=== PATIENT | female | born 1960 | race Caucasian/White ===

== ENCOUNTER → 2018-05-11 | Outpatient (CLI) | payer OTHER ==
[~2018-05-11] MED LIST: ANTIVERT25 MG PO; ATORVASTATIN CA40 MG PO; HYDROCHLOROTH12.5 M1 PO; HYDROCHLOROTHIA25 M2 PO; HYDROCODON-ACE1 EAC7 PO; IBUPROFEN200 M1 PO; TRAMADOL 50 MG50 MG PO
--- NOTE | ~2018-05-11 | PAINCON ---
[address] [address] PAIN MANAGEMENT CONSULTATION Name: HOWIE DIOP Room: [facility] IESHA Rust#: [id number] Admission: 05/11/18 Attend Phys: Brit Kidd MD Discharge: Date of : 56 Report #: [id number] THIS REPORT FOR: //name// CC: Leonarda Kidd DATE OF SERVICE: 05/11/2018 CHIEF COMPLAINT: Low back pain. HISTORY OF PRESENT ILLNESS: The patient is a 57-year-old female who has been referred to the Pain Clinic for evaluation. The patient states that she has pain, which is quite problematic in the lower portion of her back. She notes that the pain is radiating down into her right hip and involving the leg. Pain is worse when she is standing or walking. Support makes it better. Pain improves somewhat when she is sitting or leaning on an object. She described it as burning, aching, stabbing, and rates it as a 7/10 at this point. She has had some pain in the back for a number of years. It has been getting worse over the last couple of months. She has tried ibuprofen and has found hydrocodone somewhat beneficial. She has tried Depo-Medrol intramuscular injection. She has tried meloxicam. She has also been provided Flexeril. ALLERGIES: No known drug allergies. MEDICATIONS: Mobic 7.5 mg b.i.d., tramadol 50 mg one to two q. six hours p.r.n., Paxil 20 mg, ProAir 2 puffs q.i.d. shortness of breath, hydrochlorothiazide, simvastatin 40 mg, hydrocodone 5/325s one to two tablets p.r.n. q. six hours, Flexeril 10 mg t.i.d. PAST MEDICAL HISTORY: Back pain, anxiety, prediabetes, chondrocalcinosis, knee pain, hypertension, hyperlipidemia, and cervical radiculopathy, left. PAST SURGICAL HISTORY: Broken leg in 1968 - pin placed, cervical fusion three levels in 2008. SOCIAL HISTORY: The patient works in a grocery store. She is working at this juncture. REVIEW OF SYSTEMS: Generally good health. Fatigue, weakness. Wears glasses. Joint pain, joint stiffness. Muscle pain and cramps. Back pain, difficulty walking, depression. RADIOLOGY: Plain film dated 02/23/2017, three views were obtained of the lumbar spine. The vertebral body heights were maintained and there were no compression fractures or deformities or misalignments. The disc interspaces were maintained. There was sclerosis and hypertrophy of [place] [address] PAIN MANAGEMENT CONSULTATION Name: HOWIE DIOP Room: [facility] IESHA Rust#: [id number] Admission: 05/11/18 Attend Phys: Brit Kidd MD Discharge: Date of : 56 Report #: [id number] the lower lumbar spine. The pedicles were intact. The soft tissues were unremarkable. Impression: There are moderate articular changes, mainly involving the articulating facets in the lower lumbar spine. There is no radiographic evidence of acute bony pathology involved in the lumbar spine. PAIN CLINIC ASSESSMENT/PQRS: 1. The patient is not being treated for rheumatoid arthritis. 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 2. Height 5 feet 6 inches, weight 253 pounds, BMI is 40. 3. Vital signs: Blood pressure 151/78, heart rate 78, respiratory rate 16, room air saturation 94%, temperature 98.2. 4. Pain intensity: 7/10. 5. Fall history: The patient has not fallen in the last 3 months. 6. Blood thinner: The patient is not on a blood thinning medication. 7. Hypertension: The patient is not being treated for hypertension. 8. Opioids greater than 6 weeks: The patient receives medication from her primary physician. 9. Risk assessment tool: Low for opioid use. 10. Functional assessment tool. 11. Recreational drug use: The patient denies use of recreational drugs. 12. Tobacco: The patient denies use of tobacco. 13. Alcohol: The patient denies use of alcoholic beverages. PHYSICAL EXAMINATION: GENERAL: The patient is a well-developed, well-nourished white female. She appears her stated age. She is alert and oriented x 3. Her affect is appropriate. Speech is fluent. HEENT: Normocephalic, atraumatic. Extraocular eye muscles are intact. Sclerae are nonicteric. Mucous membranes are moist. NECK: The patient has discomfort in the right lateral portion of her neck. She has some numbness and tingling down into the right hand, into the fingers. She has some pain and discomfort in the upper right shoulder with some pain and discomfort, which she describes as a 4/5 for muscle strength on the right side. HEART: Regular rate, S1 and S2. LUNGS: Clear to auscultation. ABDOMEN: Nontender, protuberant. MUSCULOSKELETAL/NEUROLOGIC: The patient without significant scoliosis, kyphosis, or lordosis. She has some pain in the right hip area. She has pain that is radiating down into the L4-L5 dermatomal distribution on the right. Forward bending to about 45 degrees causes some increased pain and discomfort in low back area. The patient has some perception of dizziness with lumbar extension of her neck. She has some pain that is radiating in the right flank down into the right buttocks. Able to walk on heels and toes. Deep tendon reflexes trace at the knees. We did not hit the right knee secondary to the patient having soreness in this area. She has had cortisone injections [place] [address] PAIN MANAGEMENT CONSULTATION Name: HOWIE DIOP Room: [facility]#: [id number] Admission: 05/11/18 Attend Phys: Brit Kidd MD Discharge: Date of : 56 Report #: [id number] IMPRESSION: 1. Lumbar radiculopathy L4-L5 distribution on the right. 2. Back pain. 3. Anxiety. 4. Prediabetes. 5. Chondrocalcinosis, knee pain. 6. Hypertension. 7. Hyperlipidemia. 8. Cervical radiculopathy, left. RECOMMENDATIONS: We discussed treatment options with the patient. Risks and benefits of an epidural steroid injection were discussed. A model was used to indicate the area of probable pathology. Literature and a model was used to outline the cause and probable reason for her pain and discomfort. The patient states that she understands. She will return to the Pain Clinic at which time she will then undergo an epidural steroid injection to help decrease the pain and discomfort which she has been experiencing. She will continue with her current medications. We would like to thank you for letting us participate in her care. We hope she continues to improve. By: [id number]. Thee Kidd MD /nt
== END ==
LOC: M.PC 12:50
DX: M54.12 Radiculopathy, cervical region (principal); M54.16 Radiculopathy, lumbar region; M11.261 Other chondrocalcinosis, right knee; F41.9 Anxiety disorder, unspecified; I10 Essential (primary) hypertension; E78.5 Hyperlipidemia, unspecified; R73.03 Prediabetes

== ENCOUNTER → 2018-05-18 | Outpatient (CLI) | payer OTHER ==
--- NOTE | ~2018-05-18 | PAINCON ---
[address] [address] PAIN MANAGEMENT CONSULTATION Name: CHIKISHOWIELAOVNNE FORD Room: [facility] IESHA Rust#: [id number] Admission: 05/18/18 Attend Phys: Brit Kidd MD Discharge: Date of : 56 Report #: [id number] THIS REPORT FOR: //name// CC: Leonarda Kidd DATE OF SERVICE: 05/18/2018 CHIEF COMPLAINT: Returning for an epidural steroid injection. HISTORY: The patient is a 57-year-old female who has been seen in the Pain Clinic. She suffers from lumbar radiculopathy. She has been experiencing pain that has been radiating down the back pouch portion of her leg along the L5, L4 distribution. She has had sciatic pain in the past. Feels that this pain is a little bit different. She has returned today for injection. She got off at 3 o'clock. She went to work at 3 o'clock this morning in order to make it to this injection. Rates her pain as an 8/10. Feels that the hydrocodone 5/325 has been helpful. Also takes ibuprofen p.r.n. Describes as a burning, crushing and aching pain. Pain is worse with activity, walking, standing, climbing stairs, sitting, bending and lifting. Feels that use of medication and rest are helpful. ALLERGIES: No known drug allergies. CURRENT MEDICATIONS: Hydrocodone 5/325 one p.o. 3-4 times daily, ibuprofen 2-3 tablets daily, hydrochlorothiazide 25 mg daily. PAIN CLINIC ASSESSMENT/PQRS: 1. The patient has not fallen. The patient is not being treated for osteoarthritis or rheumatoid arthritis. 2. Height 5 feet 6 inches, weight 256 pounds, BMI 41.4. 3. Vital signs: Blood pressure 150/89, heart rate 84, respiratory rate 16, room air saturation 95%, temperature 98.4. 4. Pain intensity, 8/10. 5. Fall history: The patient has not fallen in the last 3 months. 6. Blood thinner. The patient is not on a blood thinning medication. 7. Hypertension. The patient is not being treated for hypertension. 8. Opioid greater than 6 weeks. The patient is receiving medications from the Pain Clinic. 9. Risk assessment tool, low for opioid use. 10. Functional assessment tool. 11. Recreational drug use. The patient denies use of recreational drugs. 12. Tobacco: The patient denies use of a pack of tobacco. 13. Alcohol: The patient denies use of alcoholic beverage. 14. Recreational drug use. The patient denies [place] [address] PAIN MANAGEMENT CONSULTATION Name: HOWIE DIOP [id number] Admission: 05/18/18 Attend Phys: Brit Kidd MD Discharge: Date of : 56 Report #: [id number] PHYSICAL EXAMINATION: GENERAL: The patient is a well-developed, well-nourished, somewhat obese white female, appears her stated age. She is alert and oriented x 3. Affect is appropriate. Speech is fluent. HEENT: Normocephalic, atraumatic. Extraocular eye muscles intact. Sclerae nonicteric. Mucous membranes are moist. NECK: Without adenopathy or JVD. Upper extremity muscle strength is judged to be 5/5 for the major muscle groups in the upper extremity. HEART: Regular rate. S1, S2. LUNGS: Clear to auscultation. ABDOMEN: Protuberant. Lower extremity muscle strength is judged to be 5/5 for the major muscle groups in the lower extremity. The patient has pain and discomfort, which is radiating down the right lateral thigh in the L4-L5 dermatomal distribution. The patient has some pain in the area of the left and right paraspinous area as well. IMPRESSION: Lumbar radiculopathy, L4-L5 distribution. RECOMMENDATIONS: We discussed treatment options with the patient. Risks and benefits of an epidural steroid injection were again discussed. Possible complications of the procedure, which could include but are not limited to infection, worsening pain, no improvement in pain, bleeding, nerve damage were discussed. The patient elects to proceed. PROCEDURE NOTE: The patient was assisted in getting on the examination table. Her back was sterilely prepped with a Betadine solution. A 0.25% bupivacaine was infiltrated into the area after the L4-L5 interspace had been cleaned. A 17-gauge Tuohy at the L4-L5 interspace was placed using a left paramedian approach. A total of 80 mg Depo-Medrol, 40 mg triamcinolone and 2 mL of 0.25% bupivacaine was injected. The patient tolerated the procedure well. There were no complications. She remained in the Pain Clinic for an appropriate amount of time. The patient has been given a script for hydrocodone 5/325 one p.o. b.i.d. to help control the pain. She will follow up in the near future. We would like to thank you for letting us participate in her care. We hope she continues to improve. By: [id number]. Thee Kidd MD /nt
== END | disposition home or self-care (01) ==
LOC: M.PC 05:03
DX: M54.16 Radiculopathy, lumbar region (principal); G89.29 Other chronic pain; Z79.899 Other long term (current) drug therapy; Z79.01 Long term (current) use of anticoagulants

== ENCOUNTER → 2018-10-03 | Outpatient (CLI) | payer OTHER ==
--- NOTE | ~2018-10-03 | PAINCON ---
[address] [address] PAIN MANAGEMENT CONSULTATION Name: MIKAELAENMAHOWIE HERNANEMILY Room: [facility] IESHA Rust#: [id number] Admission: 10/03/18 Attend Phys: Brit Kidd MD Discharge: Date of : 56 Report #: [id number] THIS REPORT FOR: //name// CC: Leonarda Kidd DATE OF SERVICE: 10/03/2018 CHIEF COMPLAINT: Return of low back and leg pain. HISTORY: The patient is a 58-year-old female who has been seen in the Pain Clinic because of lumbar radiculopathy. She has undergone epidural steroid injections and gleaned benefits from these. She returns today with note of increasing low back pain with pain that is radiating down into her leg. This is on the right side. She has a perception of a burning pain. Continues to work. She works at [employer]. She has worked 4 hours this morning prior to coming to the Pain Clinic. She would like to proceed with an epidural steroid injection to help decrease her discomfort. Rates her pain as an 8/10 at this point. Notes that walking, standing, climbing stairs, going from a sitting to a standing position, lifting and bending all exacerbate her pain. She gleaned greater than 60% improvement with epidural steroid injections in the past. ALLERGIES: No known drug allergies. CURRENT MEDICATIONS: Hydrocodone 5/325 one p.o. 3-4 times daily, ibuprofen 2-3 tablets daily, hydrochlorothiazide 25 mg daily. PAIN CLINIC ASSESSMENT/PQRS: 1. The patient has not fallen. She is not being treated for osteoarthritis or rheumatoid arthritis. 2. Height 5 feet 6 inches, weight 251 pounds, BMI is 40.4. 3. Vital Signs: Blood pressure 147/63, heart rate 82, respiratory rate 16, room air saturation 96%, and temperature is 98.4. 4. Pain intensity, 8/10. 5. Fall history: The patient has not fallen in the last 3 months. 6. Blood thinner. The patient is not on a blood thinning medication. 7. Hypertension. The patient is being treated for hypertension. 8. Opioids greater than 6 weeks. The patient received medication through the Pain Clinic. 9. Risk assessment tool, low for opioid use. 10. Functional assessment tool. 11. Recreational drug use. The patient denies. 12. Tobacco: The patient denies. 13. Alcohol: The patient denies [place] [address] PAIN MANAGEMENT CONSULTATION Name: HOWIE DIOP Room: [facility]#: [id number] Admission: 10/03/18 Attend Phys: Brit Kidd MD Discharge: Date of : 56 Report #: [id number] PHYSICAL EXAMINATION: GENERAL: The patient is a well-developed, well-nourished white female. Appears her stated age. She is alert and oriented x 3. Her affect is appropriate. Speech is fluent. HEENT: Normocephalic, atraumatic. Extraocular eye muscles intact. Sclerae nonicteric. Mucous membranes are moist. NECK: Without adenopathy or JVD. HEART: Regular rate. S1, S2. LUNGS: Clear to auscultation. ABDOMEN: Protuberant. EXTREMITIES: Upper extremity muscle strength is judged to be 5/5 for the major muscle groups in the upper extremity. Lower extremity muscle strength judged to be 5/5 for the major muscle groups in the lower extremity. The patient has complained of pain and discomfort with pain that radiated down the L4-L5 dermatomal distribution and describes as a burning discomfort. Notes some weakness and perceives sensory changes in her right lower extremity in the L4-L5 area. IMPRESSION: 1. Lumbar radiculopathy, L4-L5 to the dermatomal distribution. 2. Hypertension. 3. Hyperlipidemia. 4. Depression. RECOMMENDATIONS: We discussed treatment options with the patient. Risks and benefits of an epidural steroid injection were again reviewed. They include but are not limited to infection, worsening pain, no improvement in pain, nerve damage with paralysis, spinal headache and the patient elects to proceed. PROCEDURE NOTE: The patient was taken to the procedure area. She was then assisted in getting on the examination table. Her back was sterilely prepped with a Betadine solution. A 0.25% bupivacaine was injected. A 17-gauge Tuohy in the L4-L5 area using the right paramedian approach was undertaken. A total of 80 mg Depo-Medrol, 40 mg triamcinolone and 2 mL of 0.25% bupivacaine was injected. The patient tolerated the procedure well. There were no complications. Total of 10 seconds fluoroscopy time was used. The patient will follow up in the future as needed. Pain score decreased to 2 at the time of discharge. We would like to thank you for letting us participate in her care. We hope she continues to improve. By: [id number]. Thee Kidd MD /nt
== END | disposition home or self-care (01) ==
LOC: M.PC 05:07
DX: M54.16 Radiculopathy, lumbar region (principal); G89.29 Other chronic pain; I10 Essential (primary) hypertension; E78.5 Hyperlipidemia, unspecified; F32.9 Major depressive disorder, single episode, unspecified; Z79.891 Long term (current) use of opiate analgesic; Z79.899 Other long term (current) drug therapy; Z98.890 Other specified postprocedural states

== ENCOUNTER → 2018-10-31 | Outpatient (CLI) | payer OTHER ==
--- NOTE | ~2018-10-31 | PAINCON ---
[address] [address] PAIN MANAGEMENT CONSULTATION Name: HOWIE DIOP Room: [facility] IESHA Rust#: [id number] Admission: 10/31/18 Attend Phys: Brit Kidd MD Discharge: Date of : 56 Report #: [id number] THIS REPORT FOR: //name// CC: Leonarda Kidd DATE OF SERVICE: 10/31/2018 CHIEF COMPLAINT: Low back pain and here for medication renewal. HISTORY: The patient is a 58-year-old female who has been seen in the pain clinic because of lumbar radiculopathy. She has undergone epidural steroid injections and gleaned benefits from these. Returns today indicating that she still has some back pain. She is about 60% improved after the last epidural steroid injection. She found it very helpful. Still she would like to note some more improvement. She would like to consider another epidural steroid injection in the near future. She would like to have her medications of hydrocodone renewed. Feels that the ibuprofen is helpful. Walking, standing, climbing stairs, bending, lifting all still are somewhat problematic. She rates her pain intensity as a 2/10 today. ALLERGIES: No known drug allergies. CURRENT MEDICATIONS: Hydrocodone 5/325 one p.o. 3-4 times daily, ibuprofen 2-3 tablets daily, and hydrochlorothiazide 25 mg. PAIN CLINIC ASSESSMENT/PQRS: 1. The patient has not fallen in the last 3 months. 2. Height 5 feet 6 inches, weight 250 pounds, BMI is 40.4. 3. Vital signs: Blood pressure 152/84, heart rate 95, respiratory rate 16, room air saturation 93%, temperature 98.3. 4. Pain intensity 04/30. 5. Fall history: The patient has not fallen in the last 3 months. 6. Blood thinner. The patient is not on a blood thinning medication. 7. Hypertension. The patient is being treated for hypertension. 8. Opioids greater than 6 weeks. The patient received medication through the pain clinic. 9. Risk assessment tool, low for opioid use. 10. Functional assessment tool. 11. Recreational drug use. The patient denies use of recreational drugs. 12. Tobacco: The patient denies use of tobacco. 13. Alcohol: The patient denies use of alcoholic beverages. PHYSICAL EXAMINATION: GENERAL: The patient is a well-developed, well-[place] [address] PAIN MANAGEMENT CONSULTATION Name: HOWIE DIOP Room: [facility]#: [id number] Admission: 10/31/18 Attend Phys: Brit Kidd MD Discharge: Date of : 56 Report #: [id number] her stated age. Slightly obese. She is alert and oriented x 3. Her affect is appropriate. HEENT: Normocephalic, atraumatic. Extraocular eye muscles intact. Sclerae nonicteric. Mucous membranes are moist. NECK: Without adenopathy or JVD. HEART: Regular rate. S1, S2. LUNGS: Clear to auscultation. ABDOMEN: Protuberant. Bowel sounds present. EXTREMITIES: Upper extremity muscle strength judged to be 5/5 for the major muscle groups in the upper extremity. Lower extremity muscle strength judged to be 5-/5 for the major muscle groups in the lower extremity. The patient has history of lumbar radicular pain in the L4-L5 dermatomal distribution. IMPRESSION: 1. Lumbar radiculopathy, L4-L5 dermatomal distribution. 2. Hypertension. 3. Hyperlipidemia. 4. Depression. RECOMMENDATIONS: We discussed treatment options with the patient. At this juncture, we will continue with her medications. She finds that the hydrocodone medications have been beneficial. We will continue with one p.o. b.i.d. The patient will call us if she has any concerns. We have discussed the risks and benefits of opioid medications. These medications can be problematic in some patients. The patient is taking the medication as prescribed. Feels that this medication is beneficial. She is not showing signs of addiction and continues to keep the medication in a guarded area. She will call us if she has any concerns. We would like to thank you for letting us participate in her care. We will consider the possibility of epidural steroid injection in the near future. By: [id number]. Thee Kidd MD /GAURANG
== END ==
LOC: M.PC 05:10
DX: M54.16 Radiculopathy, lumbar region (principal); I10 Essential (primary) hypertension; E78.5 Hyperlipidemia, unspecified; F32.9 Major depressive disorder, single episode, unspecified; Z79.899 Other long term (current) drug therapy

== ENCOUNTER → 2018-11-28 | Outpatient (CLI) | payer OTHER ==
--- NOTE | ~2018-11-28 | PAINCON ---
[address] [address] PAIN MANAGEMENT CONSULTATION Name: AVRIL DIOPNA HERNANEMILY Room: [facility] IESHA Rust#: [id number] Admission: 11/28/18 Attend Phys: Brit Kidd MD Discharge: Date of : 56 Report #: [id number] THIS REPORT FOR: //name// CC: Leonarda Kidd DATE OF SERVICE: 11/28/2018 CHIEF COMPLAINT: Return of pain in the low back area and down into the leg. HISTORY: The patient is a 58-year-old female who has been seen in the pain clinic because of lumbar radiculopathy. She has undergone epidural steroid injections. She has noted greater than 60% improvement after the injections. She returns today indicating that her pain has started to reoccur. It involves the right leg with radiation down into the right leg. She has a burning sensation in this area. She works at [employer]. She works 6 days per week. She is "on her feet all day." She has returned today with hopes of undergoing an epidural steroid injection to help decrease the pain and discomfort that she has been experiencing. Pain is worse with activity such as walking, standing, climbing stairs, going from a sitting to a standing position, bending and twisting. Feels that her medications as well as cold can be helpful. ALLERGIES: No known drug allergies. CURRENT MEDICATIONS: Hydrocodone 5/325 one p.o. 3-4 times daily, ibuprofen 2-3 tablets daily, hydrochlorothiazide 25 mg. PAIN CLINIC ASSESSMENT AND PQRS: 1. The patient has not fallen in the last 3 months. 2. Height 5 feet 6 inches, weight 252 pounds, BMI is 40. 3. Vital signs: Blood pressure 152/84, heart rate 80, respiratory rate 16, room air saturation 94%, temperature 98.2. 4. Pain intensity 9/10. 5. Fall history. 6. Blood thinner. The patient is not on a blood thinning medication. 7. Hypertension. The patient is being treated for hypertension. 8. Opioids greater than 6 weeks. The patient receives medications from [facility]. 9. Risk assessment tool, low for opioid use. 10. Functional assessment tool. 11. Recreational drug use. The patient denies use of recreational drugs. 12. Tobacco: The patient denies use of tobacco. 13. Alcohol. The patient denies use of alcoholic beverages. PHYSICAL EXAMINATION: [place] [address] PAIN MANAGEMENT CONSULTATION Name: HOWIE DIOP Room: [facility]#: [id number] Admission: 11/28/18 Attend Phys: Brit Kidd MD Discharge: Date of : 56 Report #: [id number] GENERAL: The patient is a well-developed, well-nourished white female. Appears her stated age. She is slightly obese. She is alert and oriented x 3. Her affect is appropriate. Speech is fluent. HEENT: Normocephalic, atraumatic. Extraocular eye muscles intact. Sclerae nonicteric. Mucous membranes are moist. NECK: Without adenopathy or JVD. HEART: Regular rate. S1, S2. LUNGS: Clear to auscultation. ABDOMEN: Protuberant. Bowel sounds present. EXTREMITIES: Upper extremity muscle strength judged to be 5/5 for the major muscle groups in the upper extremity. The patient has pain and discomfort in lower portion of her back and has muscle strength as 5-/5 for the major muscle groups in the lower extremity. The patient has pain, history of discomfort in the L4-L5 dermatomal distribution, which is where she is experiencing pain with pain radiating down into her right leg today. IMPRESSION: 1. Lumbar radiculopathy, L4-L5. 2. Hypertension. 3. Hyperlipidemia. 4. Depression. RECOMMENDATIONS: We discussed treatment options with the patient. Risks and benefits of an epidural steroid injection were discussed. The possible complications of the procedure, which could include but are not limited to infection, worsening pain, no improvement in pain, bleeding, nerve damage were reviewed and the patient elects to proceed. PROCEDURE NOTE: The patient was taken to the procedure area. She was then assisted in getting on to table. Her back had been sterilely prepped with a Betadine solution and allowed to dry. Fluoroscopy using anterior, posterior, and lateral viewing were implemented. A 25-gauge needle was then used to anesthetize the skin using a translamellar approach. A 17-gauge Tuohy with loss of resistance technique was used to gain access to the epidural space. Aspiration was negative. There was no CSF or heme. A total of 80 mg Depo-Medrol, 40 mg triamcinolone and 2 mL of 0.25% bupivacaine was injected. The patient tolerated the procedure well. There were no complications. We would like to thank you for letting us participate in her care. We hope she continues to improve. By: [id number]. Thee Kidd MD /arpit
== END | disposition home or self-care (01) ==
LOC: M.PC 04:50
DX: M54.16 Radiculopathy, lumbar region (principal); G89.29 Other chronic pain; I10 Essential (primary) hypertension; E78.5 Hyperlipidemia, unspecified; F32.9 Major depressive disorder, single episode, unspecified; E66.09 Other obesity due to excess calories; Z79.891 Long term (current) use of opiate analgesic; Z79.899 Other long term (current) drug therapy; Z98.890 Other specified postprocedural states; Z68.41 Body mass index [BMI] 40.0-44.9, adult

== ENCOUNTER → 2019-01-02 | Outpatient (CLI) | payer OTHER ==
[~2019-01-02] MED LIST changes: +SIMVASTATIN80 MG PO
--- NOTE | 2019-01-10 09:09 | PAINCON ---
[address] [address] PAIN MANAGEMENT CONSULTATION Name: AYEAniHOWIE HERNANEMILY Room: [facility] JANEE Yocasta#: [id number] Admission: 01/02/19 Attend Phys: Brit Kidd MD Discharge: Date of : 56 Report #: [id number] THIS REPORT FOR: //name// CC: Leonarda Kidd DATE OF SERVICE: 01/02/2019 PRIMARY PHYSICIAN: Leonarda Tierney MD CHIEF COMPLAINT: Pain is about a 2 and has improved. HISTORY OF PRESENT ILLNESS: The patient is a 58-year-old female, who has been seen in the pain clinic. She suffers from lumbar radiculopathy. She underwent an epidural steroid injection at the last visit. Has noted a significant improvement in her pain. She has returned today and feels that the pain is reasonably controlled. She rates it as a 2/10. She feels that to wait an additional few weeks might be more helpful. Notes that her pain continues to worsen as the day progresses. Continues to work at [employer]. She is on her feet quite a bit of the time. Notes that walking, standing, climbing stairs, going from sitting to standing, bending and twisting, all are problematic. Notes that use of her medication as well as some cold can be beneficial as well. ALLERGIES: No known drug allergies. CURRENT MEDICATIONS: Hydrocodone 5/325 one p.o. 3-4 times daily, ibuprofen 2-3 tablets daily, hydrochlorothiazide 25 mg. PAIN CLINIC ASSESSMENT AND PQRS: 1. The patient has not fallen in the last 3 months. 2. Height 5 feet 6 inches, weight is 248 pounds, BMI is 40. 3. Vital signs: Blood pressure 161/78, heart rate 74, respiratory rate 16, room air saturation 97%, temperature is 97.5. 4. Pain intensity: 2/10. 5. Fall history: The patient has not fallen in the last 3 months. 6. Blood thinner. The patient is not on a blood thinning medication. 7. Hypertension. The patient is being treated for hypertension. 8. Opioids greater than 6 weeks. The patient received medication from [facility]. 9. Risk assessment tool: Low for opioid use. 10. Functional assessment tool. 11. Recreational drug use: The patient denies use of recreational drugs. 12. Tobacco: The patient denies use of tobacco. 13. Alcohol. The patient [place] [address] PAIN MANAGEMENT CONSULTATION Name: HOWIE DIOP Room: [facility]#: [id number] Admission: 01/02/19 Attend Phys: Brit Kidd MD Discharge: Date of : 56 Report #: [id number] PHYSICAL EXAMINATION: GENERAL: The patient is a well-developed, well-nourished white female. Appears her stated age. She is slightly obese. She is alert and oriented x 3. Her affect is appropriate. Speech is fluent. HEENT: Normocephalic, atraumatic. Extraocular eye muscles intact. Sclerae nonicteric. Mucous membranes are moist. NECK: Without adenopathy or JVD. HEART: Regular rate. S1, S2. LUNGS: Clear to auscultation. ABDOMEN: Not protuberant. Bowel sounds present. EXTREMITIES: Upper extremities: Upper extremity muscle strength judged to be 5/5 for the major muscle groups in the upper extremities. The patient has pain and discomfort in the lower portion of her back. Lower muscle strength judged to be 5/5 for the major muscle groups in the lower extremities. The patient has pain, which radiates down the L4-L5 dermatomal distribution, it involves the right leg. IMPRESSION: 1. Lumbar radiculopathy, right leg, L4-L5. 2. Hypertension. 3. Hyperlipidemia. 4. Depression. RECOMMENDATIONS: We discussed treatment options with the patient. At this juncture, the patient feels that her pain has been reasonably helped with the last injection. She would like to conserve the next injection for a later date. She feels that she is about 60% improved after the epidural steroid injection. There were no complications. She would like to continue on this conservative approach. The patient has rescheduled for about a month from now. She will call us if she has any problems. If her pain worsens before that period of time, she will return to the pain clinic, at which time another epidural steroid injection is an option. We would like to thank you for letting us participate in her care. We hope she continues to improve. She will continue with use of hydrocodone 1 p.o. b.i.d. p.r.n. as needed. <ELECTRONICALLY SIGNED> By: Brit Kidd MD 01/10/19 [id number]. Thee Kidd MD /nt
== END ==
LOC: M.PC 05:46
DX: M54.16 Radiculopathy, lumbar region (principal); I10 Essential (primary) hypertension; E78.5 Hyperlipidemia, unspecified; F32.9 Major depressive disorder, single episode, unspecified; Z79.899 Other long term (current) drug therapy

== ENCOUNTER → 2019-01-30 | Outpatient (CLI) | payer OTHER ==
--- NOTE | 2019-02-05 19:19 | PAINCON ---
[address] [address] PAIN MANAGEMENT CONSULTATION Name: AYEAniHOWIE HERNANEMILY Room: [facility] IESHA Rust#: [id number] Admission: 01/30/19 Attend Phys: Brit Kidd MD Discharge: Date of : 56 Report #: [id number] THIS REPORT FOR: //name// CC: Leonarda Kidd DATE OF SERVICE: 01/30/2019 CHIEF COMPLAINT: Low back pain that is going down into my right leg. HISTORY OF PRESENT ILLNESS: The patient is a 58-year-old female who has been seen in the pain clinic because of lumbar radiculopathy. She has pain and discomfort, which is problematic and radiates down into her right leg. She has undergone epidural steroid injections. She has found that those are quite beneficial. She has had no complications with them in the past. She has returned today with the hope of undergoing another injection. She has received greater than 60% improvement at the last injection. She continues to have pain that is radiating down her right leg. She remains gainfully employed. She does work at [employer]. She is on her feet quite a bit. All this walking, standing, climbing moving and bending can exacerbate her discomfort. She has noticed a worsening of the pain as well. The temperature is cooled. Daytime temperature is 12 degrees. ALLERGIES: No known drug allergies. CURRENT MEDICATIONS: Hydrocodone 5/325 one p.o. every 3-4 times daily, ibuprofen 2-3 tablets daily, hydrochlorothiazide 25 mg. PAIN CLINIC ASSESSMENT AND PQRS: 1. Height 5 feet 6 inches, weight 249 pounds, BMI is 40. 2. Vital signs: Blood pressure 160/88, heart rate 79, respiratory rate 16, room air saturation is 90%, temperature 98.2. 3. Pain intensity 10. 4. Fall history: The patient has not fallen in the last 3 months. 5. Blood thinner. The patient is not on a blood thinning medication. 6. Hypertension. The patient is being treated for hypertension. 7. Opioids greater than 6 weeks. The patient [facility]. 8. Risk assessment tool, low for opioid use. 9. Functional assessment tool. 10. Recreational drug use: The patient denies use of recreational drugs. 11. Tobacco: The patient denies use of tobacco. 12. Alcohol. The patient denies use of alcoholic beverages. PHYSICAL EXAMINATION: [place] [address] PAIN MANAGEMENT CONSULTATION Name: HOWIE DIOP Room: [facility]#: [id number] Admission: 01/30/19 Attend Phys: Brit Kidd MD Discharge: Date of : 56 Report #: [id number] GENERAL: The patient is a well-developed, well-nourished white female. Somewhat obese. She appears her stated age. She is alert and oriented x 3. Her affect is appropriate. Speech is fluent. HEENT: Normocephalic, atraumatic. Extraocular eye muscles intact. Sclerae nonicteric. Mucous membranes are moist. NECK: Without adenopathy or JVD. HEART: Regular rate. S1, S2. LUNGS: Clear to auscultation. ABDOMEN: Nontender. Bowel sounds present. EXTREMITIES: Upper extremity muscle strength judged to be 5/5 for the major muscle groups in the upper extremity. The patient has some pain and discomfort in lower portion of her back. Has pain that radiates down the buttocks area and in the L4-L5 dermatomal distribution involving the right leg. The patient has positive straight leg raise. IMPRESSION: 1. Lumbar radiculopathy, right L4-L5 dermatomal distribution. 2. Hypertension. 3. Hyperlipidemia. 4. Depression. RECOMMENDATIONS: We discussed treatment options with the patient. Risks and benefits of an epidural steroid injection were discussed. Possible complications of the procedure which could include but are not limited to infection, worsening of pain, no improvement in pain, and bleeding. The patient elects to proceed. PROCEDURE NOTE: The patient was taken to the procedure area. She was then assisted in getting on examination table. Fluoroscopy using anterior and posterior as well as lateral viewing was implemented. A local anesthetic at the L4-L5 was placed. A 0.25% bupivacaine was infiltrated using a 25-gauge needle. After this area had been anesthetized, a 17-gauge Tuohy with loss of resistance technique was used to gain access to the epidural space. There was no CSF, heme or paresthesia. Total of 80 mg Depo-Medrol, 40 mg triamcinolone and 2 mL of 0.25% bupivacaine was injected. The patient tolerated the procedure well. There were no complications. She was provided with [place] 5 mg 1 p.o. every 4 hours. She will also continue with use of ibuprofen 200 mg every 8 hours p.r.n. to help control the pain. We would like to thank you for letting us participate in her care. We hope she continues to improve. The patient has not had a flu shot last two weeks. <ELECTRONICALLY SIGNED> By: Brit Kidd MD 02/05/19 [id number] 1020N. Thee Kidd MD /arpit
== END | disposition home or self-care (01) ==
LOC: M.PC 04:12
DX: M54.16 Radiculopathy, lumbar region (principal); G89.29 Other chronic pain; I10 Essential (primary) hypertension; E78.5 Hyperlipidemia, unspecified; F32.9 Major depressive disorder, single episode, unspecified; Z98.890 Other specified postprocedural states; Z79.891 Long term (current) use of opiate analgesic; Z79.899 Other long term (current) drug therapy

== ENCOUNTER → 2019-03-06 | Outpatient (CLI) | payer OTHER ==
--- NOTE | 2019-03-20 14:48 | PAINCON ---
[address] [address] PAIN MANAGEMENT CONSULTATION Name: HOWIE DIOP Room: [facility] IESHA Rust#: [id number] Admission: 03/06/19 Attend Phys: Brit Kidd MD Discharge: Date of : 56 Report #: [id number] THIS REPORT FOR: //name// CC: Leonarda Kidd DATE OF SERVICE: 03/06/2019 CHIEF COMPLAINT: Back pain. HISTORY: The patient is a 58-year-old female who has been seen in the pain clinic in the past because of lumbar radiculopathy. She has undergone epidural steroid injections and gleaned benefits from these. She returns today indicating that she is having some pain and discomfort. She rates it as a 4-5. Has pain in the lower portion of her back and the pain that is radiating down the posterior portion of her leg. Has a burning sensation involved. Right side is more problematic than the left. She has found that the injections in the past were quite beneficial. She has found that the change in weather has become more bothersome. Rates her pain as 3-4/10. She has been using hydrocodone 5 mg. This simply takes the edge off her pain. Notes that with activities, walking, standing, sitting, lifting and bending all exacerbate her discomfort. She has returned today for an injection to help ____ the discomfort. ALLERGIES: No known drug allergies. CURRENT MEDICATIONS: Hydrocodone 5/325 one p.o. b.i.d., ibuprofen 2-3 tablets daily, hydrochlorothiazide 25 mg. PAIN CLINIC ASSESSMENT AND PQRS: 1. Height 5 feet 6 inches, weight 247 pounds, BMI is 39. 2. The patient is not being treated for rheumatoid arthritis. Does have some osteoarthritic changes in her low back area. 3. Vital Signs: Blood pressure 156/82, heart rate 76, respiratory rate 16, room air saturation is 95%. 4. Temperature 98.5. 5. Blood thinner. The patient is not on a blood thinning medication. 6. Fall history: The patient has not fallen in the last 3 months. 7. Hypertension. The patient is being treated for hypertension. 8. Opioids greater than 6 weeks. The patient received medication from [facility]. 9. Risk assessment tool, low for opioid use. 10. Functional assessment tool has been reviewed. 11. Recreational drug use: The patient denies. 12. Tobacco: The patient denies use of tobacco. 13. Alcohol: The patient denies [place] [address] PAIN MANAGEMENT CONSULTATION Name: AYEAniHOWIELAVONNE FORD Room: [facility]#: [id number] Admission: 03/06/19 Attend Phys: Brit Kidd MD Discharge: Date of : 56 Report #: [id number] PHYSICAL EXAMINATION: GENERAL: The patient is a well-developed, well-nourished, somewhat obese white female, appears her stated age. She is alert and oriented x 3. Her affect is appropriate. Speech is fluent. HEENT: Normocephalic, atraumatic. Extraocular eye muscles intact. Sclerae nonicteric. Mucous membranes are moist. NECK: Without adenopathy. HEART: Regular rate. S1, S2. LUNGS: Clear to auscultation. ABDOMEN: Bowel sounds present. EXTREMITIES: Upper extremity muscle strength judged to be 5/5 for the major muscle groups in the upper extremity. The patient has pain and discomfort in the lower portion of her back with pain that is radiating down into the buttocks area as well as in the L4-L5 and L5-S1 dermatomal distribution in the right leg. Has positive straight leg raise. IMPRESSION: 1. Lumbar radiculopathy with pain that is most problematic in the L4-L5 dermatomal distribution today. 2. Hypertension. 3. Hyperlipidemia. 4. Depression. RECOMMENDATIONS: We discussed treatment options with the patient. Risks and benefits of an epidural steroid injection were again reviewed. They include but are not limited to infection, worsening pain, no improvement in pain, increased muscle soreness and the patient elects to proceed. PROCEDURE NOTE: The patient was taken to the procedure area. She was then assisted in getting on examination table. Her back was sterilely prepped with a Betadine solution. A 0.25% bupivacaine was infiltrated. A 17-gauge Tuohy with loss of resistance technique using a midline approach at the L4-L5 area was undertaken. Aspiration was negative. There was no CSF. There was no bleeding. A total 80 mg Depo-Medrol, 40 mg triamcinolone and 2 mL of 0.25% bupivacaine was injected. The patient tolerated the procedure well. There were no complications. She remained in the Pain Clinic for an appropriate amount of time. She will follow up in the future as needed. A script for hydrocodone 5/325 one p.o. b.i.d. have been renewed. She will call us if she has any concerns. [address] [address] PAIN MANAGEMENT CONSULTATION Name: HOWIE DIOP Room: [facility]#: [id number] Admission: 03/06/19 Attend Phys: Brit Kidd MD Discharge: Date of : 56 Report #: [id number] We would like to thank you for letting us participate in her care. We hope she continues to improve. <ELECTRONICALLY SIGNED> By: Brit Kidd MD 03/20/19 1448 [id number] 2220N. Thee Kidd MD /nt
== END | disposition home or self-care (01) ==
LOC: M.PC 04:55
DX: M54.16 Radiculopathy, lumbar region (principal); G89.29 Other chronic pain; I10 Essential (primary) hypertension; E78.5 Hyperlipidemia, unspecified; F32.9 Major depressive disorder, single episode, unspecified; Z98.890 Other specified postprocedural states; Z79.899 Other long term (current) drug therapy; Z79.891 Long term (current) use of opiate analgesic

== ENCOUNTER → 2019-04-05 | Outpatient (CLI) | payer OTHER ==
--- NOTE | ~2019-04-05 | PAINCON ---
[address] [address] PAIN MANAGEMENT CONSULTATION Name: MIKAELAENMAHOWIE HERNANEMILY Room: [facility] IESHA Rust#: [id number] Admission: 04/05/19 Attend Phys: Brit Kidd MD Discharge: Date of : 56 Report #: [id number] THIS REPORT FOR: //name// CC: Leonarda Kidd DATE OF SERVICE: 04/05/2019 PRIMARY PHYSICIAN: Dr. Leonarda Tierney. CHIEF COMPLAINT: Lumbar and low back pain. HISTORY: The patient is a 58-year-old female who has been followed in the pain clinic because of chronic pain. She also has pain and discomfort in the neck area. She has had 3 levels of surgery performed in her neck. Has pain in the low back area. Rates her pain overall today as not too bad. She rates it as a 1/10. She had an epidural steroid injection in February and noticed good relief from that. She would like to wait for an additional period of time before undergoing another epidural steroid injection. She has had no changes or problems since the injection. No change in bowel or bladder function. Weather has changed outside. It has gotten cold. Notes that activities such as walking, standing, bending and lifting can be more problematic. Notes that use of her medications as well as cold and rest are helpful. She has returned today for renewal of her medications. ALLERGIES: No known drug allergies. CURRENT MEDICATIONS: Hydrocodone 5/325 one p.o. b.i.d., ibuprofen 2 tablets to 3 tablets daily, hydrochlorothiazide 25 mg. PAIN CLINIC ASSESSMENT AND PQRS: 1. Height 5 feet 6 inches, weight 252 pounds, BMI is 40. 2. Vital signs: Blood pressure 146/95, heart rate 79, respiratory rate 18, room air saturation is 92%, temperature 98.2. 3. Pain intensity 03/30. 4. Fall history: The patient has not fallen in the last 3 months. 5. Blood thinner. The patient is not on a blood thinning medication. 6. Hypertension. The patient is being treated for hypertension. 7. Opioids greater than 6 weeks. The [facility]. 8. Risk assessment tool, low for opioid use. 9. Functional assessment tool has been reviewed. 10. Recreational drug use: The patient denies. 11. Tobacco: The patient denies. 12. Alcohol. The patient [place] [address] PAIN MANAGEMENT CONSULTATION Name: HOWIE DIOP Room: [facility]#: [id number] Admission: 04/05/19 Attend Phys: Brit Kidd MD Discharge: Date of : 56 Report #: [id number] PHYSICAL EXAMINATION: GENERAL: The patient is a well-developed, well-nourished, somewhat obese white female. Appears her stated age. She is alert and oriented x 3. Affect is appropriate. Speech is fluent. HEENT: Normocephalic, atraumatic. Extraocular eye muscles intact. Sclerae nonicteric. Mucous membranes are moist. NECK: Without adenopathy. HEART: Regular rate. S1, S2. LUNGS: Clear to auscultation. ABDOMEN: Nontender. Bowel sounds present. EXTREMITIES: Upper extremity muscle strength judged to be 5/5 for the major muscle groups in the upper extremity. The patient has some pain and discomfort in the lower portion of her back with pain that radiates down the L4-L5 as well as the L5-S1 dermatomal distribution on the right side. Stable at this juncture. IMPRESSION: 1. Lumbar radiculopathy with pain in the L4-L5 dermatomal distribution, improved after last epidural steroid injection. 2. Hypertension. 3. Hyperlipidemia. 4. Depression. RECOMMENDATIONS: We discussed treatment options with the patient. At this juncture, we will continue with her medications of ibuprofen p.r.n. as well as hydrocodone 5 mg 1 p.o. b.i.d. as needed. The patient will call us if she has any concerns. She is aware that opioid medications can become less effective as time goes on. She has gleaned significant improvement after the last epidural steroid injection. She will consider returning to the Pain Clinic when her pain becomes more problematic, at which time, we will then evaluate her for the possibility of another epidural steroid injection. We would like to thank you for letting us participate in her care. We hope she continues to improve. The patient has taken her medications as prescribed. Does not appear to show any addictions to the hydrocodone medications. By: [id number]. Thee Kidd MD /arpit
== END ==
LOC: M.PC 08:05
DX: M47.816 Spondylosis without myelopathy or radiculopathy, lumbar region (principal); I10 Essential (primary) hypertension; E78.5 Hyperlipidemia, unspecified; F32.9 Major depressive disorder, single episode, unspecified

== ENCOUNTER → 2019-05-03 | Outpatient (CLI) | payer OTHER ==
--- NOTE | 2019-05-16 09:12 | PAINCON ---
[address] [address] PAIN MANAGEMENT CONSULTATION Name: AYEHOWIE Law Irena Room: [facility]#: [id number] Admission: 05/03/19 Attend Phys: Brit Kidd MD Discharge: Date of : 56 Report #: [id number] THIS REPORT FOR: //name// cc: Leonarda Tierney MD, Ghazal A. MD ~ THIS REPORT FOR: //name// CC: Leonarda Kidd DATE OF SERVICE: 05/03/2019 PRIMARY CARE PHYSICIAN: Leonarda Tierney MD CHIEF COMPLAINT: Low back pain; the injection in February was helpful. HISTORY: The patient is a 58-year-old female who has been seen in the pain clinic in the past because of lumbar radiculopathy. She has undergone epidural steroid injections in the past. These were helpful. She returns today with the hopes of undergoing another epidural steroid injection to help decrease the pain and discomfort she is experiencing. She rates her pain as a 4/10. It continues to radiate down into the low back area on the buttocks and lateral portion of her legs. Notes that walking, standing, lifting can be problematic. She has returned today with the desire to undergo an epidural steroid injection. ALLERGIES: No known drug allergies. CURRENT MEDICATIONS: Hydrocodone 5/325 one p.o. b.i.d., ibuprofen 2-3 tablets daily, hydrochlorothiazide 25 mg. PAIN CLINIC ASSESSMENT AND PQRS: 1. Height 5 feet 6 inches, weight 253 pounds, BMI is 41. 2. Vital signs: Blood pressure 152/78, heart rate 71, respiratory rate 16, room air saturation 93%. 3. Temperature 98.1. 4. Pain intensity /10. 5. Fall history: The patient has not fallen in the last 3 months. 6. Blood thinner: The patient is not on a blood thinning medication. 7. Hypertension. The patient is being treated for hypertension. 8. Opioids greater than 6 weeks. The patient received medication from one source the pain clinic. 9. Risk assessment tool, low for opioid use. 10. Functional assessment tool has been reviewed. 11. Recreational drug use: The patient denies. 12. Tobacco: The patient denies. 13. Alcohol: The patient [place] [address] PAIN MANAGEMENT CONSULTATION Name: AYEAniHOWIE A Room: [facility]#: [id number] Admission: 05/03/19 Attend Phys: Brit Kidd MD Discharge: Date of : 56 Report #: [id number] PHYSICAL EXAMINATION: GENERAL: The patient is a well-developed, well-nourished, somewhat obese white female, appears her stated age. She is alert and oriented x 3. Her affect is appropriate. Speech is fluent. HEENT: Normocephalic, atraumatic. Extraocular eye muscles intact. Sclerae nonicteric. Mucous membranes are moist. NECK: Without adenopathy or JVD. HEART: Regular rate. ABDOMEN: Nontender. Bowel sounds present. LUNGS: Clear to auscultation. EXTREMITIES: Upper extremity muscle strength judged to be 5/5 for the major muscle groups in the upper extremity. The patient has pain and discomfort in the lower portion of the back with pain that is radiating down the L4-L5 area. IMPRESSION: 1. Lumbar radiculopathy in the L4-L5 dermatomal distribution, improved with last epidural steroid injection. 2. Hypertension. 3. Hyperlipidemia. 4. Depression. RECOMMENDATIONS: We discussed retreatment options with the patient. Risks and benefits of an epidural steroid injection were discussed. They include but are not limited to infection, worsening pain, no improvement in pain, nerve damage, muscle soreness, spinal headache and the patient elects to proceed. PROCEDURE NOTE: The patient was taken to the procedure area. She was then assisted in getting on examination table. Her back was sterilely prepped with Betadine solution. A 0.25% bupivacaine was infiltrated. A 17-gauge Tuohy with loss of resistance technique was used to gain access to the epidural space. There was no CSF or paresthesia. Total of 80 mg Depo-Medrol, 40 mg triamcinolone and 2 mL of 0.25% bupivacaine was injected at the L4-L5 interspace. The patient tolerated the procedure well. There were no complications. She was then taken to the recovery room. She remained in the recovery room for an appropriate amount of time. We would like to thank you for letting us participate in her care. We hope she continues to improve. <ELECTRONICALLY SIGNED> By: Brit Kidd MD 05/16/19 0912 [id number]. Thee Kidd MD /arpit
== END | disposition home or self-care (01) ==
LOC: M.PC 02:13
DX: M54.16 Radiculopathy, lumbar region (principal); G89.29 Other chronic pain; I10 Essential (primary) hypertension; E78.5 Hyperlipidemia, unspecified; F32.9 Major depressive disorder, single episode, unspecified; Z98.890 Other specified postprocedural states; Z79.899 Other long term (current) drug therapy; Z79.891 Long term (current) use of opiate analgesic

== ENCOUNTER → 2019-05-31 | Outpatient (CLI) | payer OTHER ==
--- NOTE | 2019-05-31 13:54 | PAINCON ---
[facility] [address] [place] [address] PAIN MANAGEMENT CONSULTATION Name: AYEAniHOWIE Irena Room: [facility]#: [id number] Admission: 05/31/19 Attend Phys: Brit Kidd MD Discharge: Date of : 56 Report #: [id number] THIS REPORT FOR: //name// cc: Leonarda Tierney MD, Ghazal A. MD ~ THIS REPORT FOR: //name// CC: Leonarda Kidd DATE OF SERVICE: 05/31/2019 FOLLOWUP HISTORY: Things have improved since the injection. HISTORY: The patient is a 58-year-old female who has been followed in the pain clinic. She has a history of lumbar radiculopathy. Her pain sometimes escalates. She underwent an epidural steroid injection at the last visit. She returns today indicating that her pain is decreased from 4-1. Overall, she feels that things are better. She is able to increase her activity with less pain and discomfort. Did have pain that radiated down into the low back and into her buttocks that has improved. She has less discomfort with walking, standing, and other activities of daily living. ALLERGIES: No known drug allergies. CURRENT MEDICATIONS: Hydrocodone 5/325 one p.o. b.i.d., ibuprofen 2-3 tablets daily, hydrochlorothiazide 25 mg. PAIN CLINIC ASSESSMENT AND PQRS: 1. Height 5 feet 6 inches, weight 256 pounds, BMI is 40. 2. Vital Signs: Blood pressure 159/75, heart rate 80, respiratory rate 16, room air saturation is 93%. 3. Pain intensity 03/30. 4. Fall history: The patient has not fallen in the last 3 months. 5. Blood thinner. The patient is not on a blood thinning medication. 6. Hypertension. The patient is being treated for hypertension. 7. Opioids greater than 6 weeks. The patient receives medication from one source, pain clinic. 8. Risk assessment tool, low for opioid use. 9. Functional assessment tool reviewed. 10. Recreational drug use: The patient denies. 11. Tobacco: The patient denies. 12. Alcohol: The patient rarely drinks alcoholic beverages. PHYSICAL EXAMINATION: GENERAL: The patient is a well-developed, well-[place] [address] PAIN MANAGEMENT CONSULTATION Name: HOWIE DIOP Irena Room: [facility]#: [id number] Admission: 05/31/19 Attend Phys: Brit Kidd MD Discharge: Date of : 56 Report #: [id number] her stated age. She is alert and oriented x 3. Her affect is appropriate. Speech is fluent. HEENT: Normocephalic, atraumatic. Extraocular eye muscles intact. Sclerae nonicteric. Mucous membranes are moist. NECK: Without adenopathy or JVD. HEART: Regular rate. ABDOMEN: Nontender. Bowel sounds present. Protuberant. LUNGS: Clear to auscultation. EXTREMITIES: Upper extremity muscle strength judged to be 5/5 for the major muscle groups in the upper extremity. The patient has less pain and discomfort in the L4-L5 dermatomal distribution and rates it as 1. IMPRESSION: 1. Lumbar radiculopathy at the L4-L5 dermatomal distribution improved after the epidural steroid injection, now down to pain scale of 1/10. 2. Hypertension. 3. Hyperlipidemia. 4. Depression. RECOMMENDATIONS: We discussed treatment options with the patient. At this juncture, things have improved. She rates her pain as 1/10. We will continue with a conservative approach. The patient's medications of hydrocodone have been renewed. She is aware that the hydrocodone medications can be helpful. Opioids can become less effective as time goes on secondary to development of tolerance. She is not showing signs of fever. Temperature today is 98. She will continue with the ibuprofen. She will monitor her stomach. Nonsteroidal anti-inflammatory medications can sometimes be problematic in patients with long-term use. We would like to thank you for letting us participate in her care. We hope she continues to improve. We discussed the CDCs suggestion for preventative infection with COVID-19. The patient states that she is washing her hands and trying to adhere to the CDC protocol. <ELECTRONICALLY SIGNED> By: Brit Kidd MD 05/31/19 1354 [id number]. Thee Kidd MD /[facility]
== END ==
LOC: M.PC 04:16
DX: M54.16 Radiculopathy, lumbar region (principal); I10 Essential (primary) hypertension; E78.5 Hyperlipidemia, unspecified; F32.9 Major depressive disorder, single episode, unspecified; Z79.84 Long term (current) use of oral hypoglycemic drugs; Z79.899 Other long term (current) drug therapy

== ENCOUNTER → 2019-06-28 | Outpatient (CLI) | payer OTHER ==
--- NOTE | 2019-07-04 15:09 | PAINCON ---
[address] [address] PAIN MANAGEMENT CONSULTATION Name: HOWIE DIOP Room: [facility]#: [id number] Admission: 06/28/19 Attend Phys: Brit Kidd MD Discharge: Date of : 56 Report #: [id number] THIS REPORT FOR: //name// cc: Leonarda Tierney MD, Ghazal A. MD ~ THIS REPORT FOR: //name// CC: Leonarda Kidd DATE OF SERVICE: 06/28/2019 CHIEF COMPLAINT: Here for medications. HISTORY: The patient is a 58-year-old female who has been followed in the Pain Clinic because of lumbar radiculopathy. She continues to work at [employer]. Her job is somewhat strenuous. She does quite a bit of bending and twisting. The COVID-19 virus is problematic. This has made her job activities somewhat different. She rates her pain as a 6/10. She continues to have pain that radiates down into her right butt and into her leg. She rates the pain as a 6/10. She would like to proceed with an epidural steroid injection when it is reasonable to proceed again. The [employer] has recommended that injections be held for some time until the COVID virus has been better controlled. ALLERGIES: No known drug allergies. CURRENT MEDICATIONS: Hydrocodone 5/325 one p.o. b.i.d., ibuprofen 2-3 tablets daily, and hydrochlorothiazide 25 mg. PAIN CLINIC ASSESSMENT AND PQRS: 1. Height 5 feet 6 inches, weight 252 pounds, BMI is 41. 2. Vital signs: Blood pressure is 177/85, heart rate 80, respiratory rate 16, room air saturation is 94%, and temperature 96.9. 3. Pain intensity is a 6/10. 4. Fall history: The patient has not fallen in the last 3 months. 5. Blood thinner. The patient is not on a blood thinning medication. 6. Hypertension. The patient is being treated for hypertension. 7. Opioids greater than 6 weeks. The patient receives medications from the Pain Clinic. 8. Risk assessment tool, low for opioid use. 9. Functional assessment tool has been reviewed. 10. Recreational drug use: The patient denies. 11. Tobacco: The patient denies. 12. Alcohol: The patient [place] [address] PAIN MANAGEMENT CONSULTATION Name: HOWIE DIOP Room: [facility]#: [id number] Admission: 06/28/19 Attend Phys: Brit Kidd MD Discharge: Date of : 56 Report #: [id number] PHYSICAL EXAMINATION: GENERAL: The patient is a well-developed, well-nourished, somewhat obese white female, appears her stated age. She is alert and oriented x 3. Her affect is appropriate. Speech is fluent. HEENT: Normocephalic, atraumatic. Extraocular eye muscles intact. Sclerae nonicteric. Mucous membranes are moist. NECK: Without adenopathy or JVD. HEART: Regular rate. ABDOMEN: Protuberant. Bowel sounds present. LUNGS: Generally clear to auscultation. MUSCULOSKELETAL: Upper extremity muscle strength judged to be 5/5 for the major muscle groups in the upper extremity. The patient has less pain and discomfort in the L4-L5 dermatomal distribution, but still has some discomfort and rates it as a 6/10. IMPRESSION: 1. Lumbar radiculopathy, L4-L5 dermatomal distribution, rated as a 6/10. 2. Hypertension. 3. Hyperlipidemia. 4. Depression. 5. Use of opioids to help control chronic lumbar pain. RECOMMENDATIONS: We discussed treatment options with the patient. We will explain to the patient that with the COVID-19 infection going around, it has been recommended to the patient that we only proceed with epidural steroid injections as the patient really needs them and is finding quite problematic to engage in activities of daily living. We explained to the patient that steroids decrease the immune system somewhat. The patient has been using nonsteroidal anti-inflammatory medications. She will continue to use those as she has in the past. Notes that walking, sitting, standing can be problematic. We have renewed her hydrocodone. A script for this medication has been rewritten. She will continue with hydrocodone 5/325 one p.o. b.i.d., a total of 60 tablets have been provided. We would like to thank you for letting us participate in her care. We hope she continues to improve. <ELECTRONICALLY SIGNED> By: Brit Kidd MD 07/04/19 1509 [id number]. Thee Kidd MD /arpit
== END ==
LOC: M.PC 04:57
DX: M54.16 Radiculopathy, lumbar region (principal); I10 Essential (primary) hypertension; E78.5 Hyperlipidemia, unspecified; F32.9 Major depressive disorder, single episode, unspecified; F11.20 Opioid dependence, uncomplicated; F10.10 Alcohol abuse, uncomplicated; Z79.84 Long term (current) use of oral hypoglycemic drugs; Z79.899 Other long term (current) drug therapy

== ENCOUNTER → 2019-07-26 | Outpatient (CLI) | payer OTHER | END | disposition home or self-care (01) | LOC: M.PC 01:49 | DX: M54.16 Radiculopathy, lumbar region (principal); G89.29 Other chronic pain ==

== ENCOUNTER → 2019-08-23 | Outpatient (CLI) | payer OTHER ==
--- NOTE | ~2019-08-23 | PAINCON ---
[facility] [address] [place] [address] PAIN MANAGEMENT CONSULTATION Name: AYEHOWIE Law Irena Room: [facility]#: [id number] Admission: 08/23/19 Attend Phys: Brit Kidd MD Discharge: Date of : 56 Report #: [id number] THIS REPORT FOR: //name// cc: Leonarda Tierney MD, Ghazal A. MD ~ THIS REPORT FOR: //name// CC: Leonarda Kidd DATE OF SERVICE: 08/23/2019 CHIEF COMPLAINT: Low back pain. HISTORY: The patient is a 59-year-old female who has been followed in the Pain Clinic. Suffers from lumbar radiculopathy. Epidural steroid injections have been beneficial. She reports about 60-70% relief from the last injection. She has returned today for renewal of her medications. She is concerned. Her insurance with [employer] is now out of network. Notes that her pain is worse when she is walking, sitting, standing and bending. She is staying home because of the COVID-19. 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 She feels that the constant contact with the public puts her at a higher risk. ALLERGIES: No known drug allergies. CURRENT MEDICATIONS: Hydrocodone 5/325 one p.o. b.i.d., ibuprofen 2-3 tablets daily, and hydrochlorothiazide 25 mg. PAIN CLINIC ASSESSMENT/PQRS: 1. Height 5 feet 6 inches, weight 252 pounds, BMI is 40. 2. Vital signs: Blood pressure 153/80, heart rate 75, respiratory rate 16, room air saturation 92%, and temperature 98.8. 3. Pain intensity, 03/30. 4. Fall history: The patient has not fallen since we saw her last. 5. Blood thinner. The patient is not on a blood thinning medication. 6. Hypertension. The patient is being treated for hypertension. 7. Opioids greater than 6 weeks. The patient receives medication from the Pain Clinic. 8. Risk assessment tool, low for opioid use. 9. Functional assessment tool reviewed. 10. Recreational drug use. The patient denies. 11. Tobacco: The patient denies. 12. Alcohol: The patient [place] [address] PAIN MANAGEMENT CONSULTATION Name: HOWIE DIOP Room: [facility]#: [id number] Admission: 08/23/19 Attend Phys: Brit Kidd MD Discharge: Date of : 56 Report #: [id number] PHYSICAL EXAMINATION: GENERAL: The patient is a well-developed, well-nourished white female. She is obese. She is alert and oriented x 3. Her speech is fluent. HEENT: Normocephalic, atraumatic. Extraocular eye muscles intact. Sclerae nonicteric. Mucous membranes are moist. NECK: Without adenopathy or JVD. HEART: Regular rate. ABDOMEN: Protuberant. Bowel sounds present. LUNGS: Generally clear to auscultation. MUSCULOSKELETAL: Upper extremity muscle strength is judged to be 5/5 for the major muscle groups in the upper extremity. The patient has some pain and discomfort that radiates down into the lower portion of her back in the L4-L5 dermatomal distribution. IMPRESSION: 1. History of lumbar radiculopathy in the L4-L5 distribution, improved 60-70% after last injection. 2. Hypertension. 3. Hyperlipidemia. 4. Depression. 5. Use of opioids to help control her chronic pain. RECOMMENDATIONS: We discussed treatment options with the patient. At this juncture, her pain seems to have been helpful 60-70% after the last epidural steroid injection. She is still working at [employer]. She is concerned that her insurance now with us is now out of network. We will continue with her current medical regimen of hydrocodone 5/325 is one p.o. b.i.d. A script for this medication has been provided. Hopefully, the patient will be able to receive medical treatment as needed through her employer. We hope she can get permission to continue with the Pain Clinic here. A script for her medications have been written. We would like to thank you for letting us participate in her care. She will continue to retirement at home during the pandemic. By: [id number]. Thee Kidd MD /arpit
== END ==
LOC: M.PC 03:56
PROVIDERS: ATTEND Anesthesiology Pain Medicine
DX: M54.5 Low back pain (principal); I10 Essential (primary) hypertension; E78.5 Hyperlipidemia, unspecified; F32.9 Major depressive disorder, single episode, unspecified; F11.20 Opioid dependence, uncomplicated; Z87.39 Personal history of other diseases of the musculoskeletal system and connective tissue; Z79.899 Other long term (current) drug therapy

== ENCOUNTER → 2019-10-18 | Outpatient (CLI) | payer OTHER ==
--- NOTE | 2019-10-25 23:57 | PAINCON ---
[address] [address] PAIN MANAGEMENT CONSULTATION Name: AYEAniHOWIE A Room: [facility]#: [id number] Admission: 10/18/19 Attend Phys: Brit Kidd MD Discharge: Date of : 56 Report #: [id number] THIS REPORT FOR: //name// cc: Leonarda Tierney MD, Ghazal A. MD ~ THIS REPORT FOR: //name// CC: Leonarda Kidd DATE OF SERVICE: 10/18/2019 CHIEF COMPLAINT: Low back pain down into the legs. HISTORY: The patient is a 59-year-old female who has been seen and followed in the pain clinic because of chronic back and leg pain. She has undergone epidural steroid injection in the past. She has gleaned about 60-70% benefit. At this juncture, she rates her pain as about 40% improved with her current medical regimen. She would like to proceed with an epidural steroid injection to help quell the pain and discomfort. She continues to work at [employer]. She has some, but physical job. She notes that there is pain that is radiating down into her right leg. Activities such as walking, sitting and standing can be problematic. Rest and use of her medications are beneficial. She has returned today with the desire to undergo another epidural steroid injection because of the chronic pain that continues to radiate down to her right leg. ALLERGIES: No known drug allergies. CURRENT MEDICATIONS: Hydrocodone 5/325 1 p.o. b.i.d., ibuprofen 2-3 tablets daily, hydrochlorothiazide 25 mg. PAIN CLINIC ASSESSMENT AND PQRS: 1. Height 5 feet 6 inches, weight 252 pounds, BMI is 40. 2. Vital Signs: Blood pressure is 188/80, heart rate 75, respiratory rate 16, room air saturation 93%, temperature 97.1. 3. Pain intensity, 05/28. 4. Fall history. The patient has not fallen in the last 3 months. 5. Blood thinner. The patient is not on a blood thinning medication. 6. Hypertension. The patient is not being treated for hypertension. 7. Opioids greater than 6 weeks. The patient receives medication from the pain clinic. 8. Risk assessment tool, low for opioid use. 9. Functional assessment tool, reviewed. 10. Recreational drug use. The patient denies. 11. Tobacco. The patient denies. 12. Alcohol. The patient [place] [address] PAIN MANAGEMENT CONSULTATION Name: HOWIE DIOP Room: [facility]#: [id number] Admission: 10/18/19 Attend Phys: Brit Kidd MD Discharge: Date of : 56 Report #: [id number] PHYSICAL EXAMINATION: GENERAL: The patient is a well-developed, well-nourished, somewhat obese white female. Appears her stated age. She is alert and oriented x 3. Her affect is appropriate. Speech is fluent. HEENT: Normocephalic, atraumatic. Extraocular eye muscles intact. Sclerae nonicteric. Mucous membranes are moist. The patient is wearing a mask. NECK: Without JVD or adenopathy. HEART: Regular rate. ABDOMEN: Protuberant. Bowel sounds present. LUNGS: Generally clear. MUSCULOSKELETAL: Upper extremity muscle strength judged to be 5/5 for the major muscle groups in the upper extremity. The patient has some pain and discomfort that radiates down in the lower portion of her back in the L4-L5 dermatomal distribution with irritation in the right leg. IMPRESSION: 1. History of lumbar radiculopathy at L4-L5 distribution, improves by 60-70% after injections. 2. Hypertension. 3. Hyperlipidemia. 4. Depression. 5. Use of opioids to help control pain on a chronic basis. RECOMMENDATIONS: We discussed treatment options with the patient. Risks and benefits of the procedure were discussed. Possible complications of the procedure were reviewed. They include but are not limited to infection, worsening pain, no improvement in pain, nerve damage, spinal headache. We are in the COVID-19 pandemic. We explained to the patient that steroids can decrease one's immune system response. Should she become infected with coronavirus, she may have a more difficult outcome. She elects to proceed. PROCEDURE NOTE: The patient was taken to the procedure area. She was then assisted in getting on the examination table. Her back was sterilely prepped with a Betadine solution. A 0.25% bupivacaine was infiltrated. A 17-gauge Tuohy with loss of resistance technique was used to gain access to the epidural space at L4-L5. A total of 80 mg Depo-Medrol, 40 mg triamcinolone and 2 mL of 0.25% bupivacaine was injected. The patient tolerated the procedure well. There were no complications. She remained in the pain clinic for an appropriate amount of time. She will call us if she has any concerns. A script for the patient's medications of hydrocodone 5/325 1 p.o. b.i.d. have been renewed for the next 2 months. <ELECTRONICALLY SIGNED> By: Brit Kidd MD 10/25/19 3007 [id number]. MD SCOT [place]
== END | disposition home or self-care (01) ==
LOC: M.PC 03:55
PROVIDERS: ATTEND Anesthesiology Pain Medicine
DX: M54.5 Low back pain (principal); I10 Essential (primary) hypertension; M54.16 Radiculopathy, lumbar region; E78.5 Hyperlipidemia, unspecified; F32.9 Major depressive disorder, single episode, unspecified; Z79.899 Other long term (current) drug therapy; Z88.8 Allergy status to other drugs, medicaments and biological substances

== ENCOUNTER → 2019-12-13 | Outpatient (CLI) | payer OTHER ==
--- NOTE | 2019-12-18 13:31 | PAINCON ---
[address] [address] PAIN MANAGEMENT CONSULTATION Name: AYEAniHOWIE A Room: [facility]#: [id number] Admission: 12/13/19 Attend Phys: Brit Kidd MD Discharge: Date of : 56 Report #: [id number] THIS REPORT FOR: //name// cc: Leonarda Tierney MD, Ghazal A. MD ~ THIS REPORT FOR: //name// CC: Leonarda Kidd DATE OF SERVICE: 12/13/2019 CHIEF COMPLAINT: "I would like to have another injection, my pain has started to return. HISTORY: The patient is a 59-year-old female who has been followed in the Pain Clinic because of chronic back and leg pain. 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 She has noticed a recurrence of pain and discomfort in the low back area. She noticed that a week or so ago, her pain started to return. Overall, she had been doing well. Feels that the hydrocodone medication helps. Activities such as walking, sitting and standing can be more problematic. The weather has changed a little bit. She is somewhat colder. She is concerned that her pain might be increasing. She has had no complications from the procedures in the past. ALLERGIES: No known drug allergies. CURRENT MEDICATIONS: Hydrocodone 5 mg 1 p.o. b.i.d., ibuprofen 2-3 tablets p.o. p.r.n., and hydrochlorothiazide 25 mg. PAIN CLINIC ASSESSMENT AND PQRS: 1. Height 5 feet 6 inches, weight 250 pounds, BMI is 40. 2. Vital signs: Blood pressure 157/90, heart rate 80, respiratory rate 18, room air saturation 94%, and temperature 96%. 3. Pain intensity is 3/10. 4. Fall history: The patient has not fallen in the last 3 months. 5. Blood thinner. The patient is not on a blood thinning medication. 6. Hypertension. The patient is not being treated for hypertension. 7. Opioids greater than 6 weeks. The patient receives medication from one source the Pain Clinic. 8. Risk assessment tool, low for opioid use. 9. Functional assessment tool reviewed. 10. Recreational drug use. The patient denies. 11. Tobacco: The patient denies. 12. Alcohol: The patient [place] [address] PAIN MANAGEMENT CONSULTATION Name: HOWIE DIOP Irena Room: [facility]#: [id number] Admission: 12/13/19 Attend Phys: Brit Kidd MD Discharge: Date of : 56 Report #: [id number] PHYSICAL EXAMINATION: GENERAL: The patient is a well-developed, well-nourished, somewhat obese white female, appears her stated age. She is alert and oriented x 3. Her affect is appropriate. Speech is fluent. HEENT: Normocephalic, atraumatic. Extraocular eye muscles intact. Sclerae nonicteric. Mucous membranes are moist. The patient is wearing a facial covering. NECK: Without adenopathy or JVD. HEART: Regular rate. ABDOMEN: Protuberant. Bowel sounds present. LUNGS: Clear. MUSCULOSKELETAL: Upper extremity muscle strength judged to be 5/5 for the major muscle groups in the upper extremity. The patient has some pain and discomfort in the lower portion of her back with pain that is radiating down into the right side in the L5/L4 dermatomal distribution involving the right leg. IMPRESSION: 1. History of lumbar radiculopathy in the L4-L5 dermatomal distribution with 60-70% improvement after injections. 2. Hypertension. 3. Hyperlipidemia. 4. Depression. 5. History of opioids used to help control pain. RECOMMENDATIONS: We discussed treatment options with the patient. Risks and benefits of an epidural steroid injection were discussed. Possible complications of the procedure were reviewed. They include but are not limited to infection, worsening pain, no improvement in pain, nerve damage, bleeding, and the patient elects to proceed. The patient has been reminded of COVID-19. Possibility of infection after having a steroid injection might cause some worsening of her outcome. The patient elects to proceed. PROCEDURE NOTE: The patient was taken to the procedure area. She was then assisted in getting on the examination table. Her back was sterilely prepped with a Betadine solution. A 0.25% bupivacaine was infiltrated at the L4-L5 interspace. There was no CSF, heme or paresthesia. Total of 80 mg Depo-Medrol, 40 mg triamcinolone and 2 mL of 0.25% bupivacaine was injected. The patient tolerated the procedure well. She remained in the Pain Clinic for an appropriate amount of time. A script for hydrocodone 5 mg 1 p.o. b.i.d. have been provided for the next 2 months. <ELECTRONICALLY SIGNED> By: Brit Kidd MD 12/18/19 1331 [id number]. Thee Kidd MD /nt
== END | disposition home or self-care (01) ==
LOC: M.PC 08:26
PROVIDERS: ATTEND Anesthesiology Pain Medicine
DX: M54.16 Radiculopathy, lumbar region (principal); G89.29 Other chronic pain; I10 Essential (primary) hypertension; E78.5 Hyperlipidemia, unspecified; F32.9 Major depressive disorder, single episode, unspecified; Z98.890 Other specified postprocedural states; Z79.899 Other long term (current) drug therapy; Z79.891 Long term (current) use of opiate analgesic

== ENCOUNTER → 2020-02-07 | Outpatient (CLI) | payer OTHER | END | disposition home or self-care (01) | LOC: M.PC 08:18 | PROVIDERS: ATTEND Anesthesiology Pain Medicine | DX: M54.16 Radiculopathy, lumbar region (principal); G89.29 Other chronic pain; I10 Essential (primary) hypertension; E78.5 Hyperlipidemia, unspecified; F32.9 Major depressive disorder, single episode, unspecified; Z98.890 Other specified postprocedural states; Z79.899 Other long term (current) drug therapy; Z79.891 Long term (current) use of opiate analgesic ==

== ENCOUNTER → 2020-04-03 | Outpatient (CLI) | payer OTHER | LOC: M.PC 08:02 | PROVIDERS: ATTEND Anesthesiology Pain Medicine | DX: M54.16 Radiculopathy, lumbar region (principal); I10 Essential (primary) hypertension; E78.5 Hyperlipidemia, unspecified; F32.9 Major depressive disorder, single episode, unspecified; Z79.891 Long term (current) use of opiate analgesic ==

== ENCOUNTER → 2020-05-29 | Outpatient (CLI) | payer OTHER ==
[~2020-05-29] MED LIST changes: +MECLIZINE HCL25 M1 PO; +PAXIL20 MG PO
== END ==
LOC: M.PC 07:59
PROVIDERS: ATTEND Anesthesiology Pain Medicine
DX: M54.5 Low back pain (principal); R10.2 Pelvic and perineal pain; I10 Essential (primary) hypertension; E78.5 Hyperlipidemia, unspecified; F32.9 Major depressive disorder, single episode, unspecified; F11.20 Opioid dependence, uncomplicated; Z87.39 Personal history of other diseases of the musculoskeletal system and connective tissue

== ENCOUNTER → 2020-06-05 | Outpatient (CLI) | payer OTHER | END | disposition home or self-care (01) | LOC: M.PC 11:36 | PROVIDERS: ATTEND Anesthesiology Pain Medicine | DX: M54.16 Radiculopathy, lumbar region (principal); G89.29 Other chronic pain; I10 Essential (primary) hypertension; E78.5 Hyperlipidemia, unspecified; F32.9 Major depressive disorder, single episode, unspecified; Z98.890 Other specified postprocedural states; Z79.899 Other long term (current) drug therapy; Z79.891 Long term (current) use of opiate analgesic ==

== ENCOUNTER 2020-07-04 10:25 | Inpatient (IN) | payer BC ==
[~2020-07-04] VITALS: Ht 167.6 cm; Wt 113.4 kg
[~2020-07-04 10:25] MED LIST changes: +HYDROCHLOROTHIA25 M1 PO; -HYDROCHLOROTHIA25 M2 PO; -SIMVASTATIN80 MG PO; +ZOCOR20 MG PO
[2020-07-04 10:30] VITALS: BP 118/60
[2020-07-04 11:33] LABS: HEMATOCRIT 35.5 % (37.0-47.0); HEMOGLOBIN 11.7 gm/dL (12.0-15.0); MCH 30.4 pg (26.0-34.0); MCHC 32.9 g/dL (28.0-37.0); MCV 92.5 fL (80.0-100.0); MPV 8.2 fl. (7.2-11.1); NUCLEATED RBCS 0 /100WBC; PLATELET COUNT* 278 thou/uL (150-400); RBC 3.84 mil/uL (4.20-5.00); RDW-CV 14.1 % (10.5-14.5)
[2020-07-04 11:47] LABS: CALCIUM 8.5 mg/dL (8.5-10.1); CREATININE 0.9 mg/dL (0.6-1.3); POTASSIUM 3.1 mmol/L (3.5-5.1)
[2020-07-04 11:59] LABS: ALBUMIN 3.5 g/dL (3.4-5.0); TOTAL BILIRUBIN 1.3 mg/dL (<0.1-1.0); TOTAL PROTEIN 6.9 g/dL (6.4-8.2)
[2020-07-04 12:09] LABS: ABSOLUTE LYMPHOCYTES 1.2 thou/uL (0.8-5.3); ABSOLUTE MONOCYTES 0.8 thou/uL (0.0-1.2); ABSOLUTE NEUTROPHILS 11.1 thou/uL (1.6-8.1); ATYPICAL LYMPHS 2 %; PLATELET ESTIMATE ADEQUATE; TOXIC GRANULATION 1+
[2020-07-04 13:04] LABS: URINE BILIRUBIN NEGATIVE (Negative); URINE BLOOD 1+ (Negative); URINE CLARITY CLEAR; URINE COLOR YELLOW; URINE GLUCOSE-RANDOM NEGATIVE (Negative); URINE KETONES NEGATIVE (Negative); URINE LEUKOCYTES-REFLEX TRACE (Negative); URINE NITRITE-REFLEX NEGATIVE (Negative); URINE PROTEIN NEGATIVE (Negative); URINE UROBILINOGEN 0.2 E.U./dl (0.2-1.0)
[2020-07-04 13:14] LABS: SQUAMOUS 4-10 Moderate /LPF (0-3)
[2020-07-04 13:15] LABS: BACTERIA-REFLEX 1-9 Few /HPF (None Seen); CASTS None Seen /LPF (None Seen); CRYSTALS None Seen /LPF (None Seen); MUCUS None Seen strn/LPF (None Seen); URINE RBC 3-10 Few /HPF (0-2)
[2020-07-04 16:53] VITALS: BP 145/65
--- NOTE | 2020-07-04 16:55 | NUR ---
ER ADMIT TO RM 203 TELEPHONE REPORT GIVEN PRIOR TO ARRIVAL PATIENT WITH SBA TO BED C/O CAR 07/19O ORIENTED TO AND CALL LIGHT
[2020-07-04 17:00] VITALS: BP 131/52
[2020-07-04 20:00] VITALS: BP 114/47
[2020-07-05 00:36] VITALS: BP 126/64
--- NOTE | 2020-07-05 02:07 | NUR ---
PT ALERT ORIENTED. UP WITH STAND BY ASSIST. FALL PRECAUTIONS IN PLACE. FENTANYL GIVEN ONCE FOR BACK PAIN. INITAL ASSESSMENT NS BOLUS INFUSING AT 250MLS/HR. BOLUS INFUSED APPROX 2100. NEW BAG HUNG AND RATE CHGD TO 150ML/HR. PT SLEEPING COMFORTABLEY. ON RA. SECOND DOSE OF POTASSIUM GIVEN. REDRAW AT 2330 3.9. TELEMTRY SHOWS SR.
[2020-07-05 04:03] LABS: HEMATOCRIT 29.2 % (37.0-47.0); MCH 30.8 pg (26.0-34.0); MCHC 32.9 g/dL (28.0-37.0); MCV 93.6 fL (80.0-100.0); MPV 8.4 fl. (7.2-11.1); RBC 3.12 mil/uL (4.20-5.00); RDW-CV 14.1 % (10.5-14.5); WBC 12.6 thou/uL (4.0-11.0)
[2020-07-05 04:16] LABS: ALBUMIN 2.6 g/dL (3.4-5.0); CALCIUM 7.8 mg/dL (8.5-10.1); CREATININE 0.8 mg/dL (0.6-1.3); MAGNESIUM 2.2 mg/dL (1.8-2.4); POTASSIUM 3.8 mmol/L (3.5-5.1); TOTAL BILIRUBIN 0.9 mg/dL (<0.1-1.0); TOTAL PROTEIN 5.9 g/dL (6.4-8.2)
[2020-07-05 04:47] LABS: HEMOGLOBIN 9.6 gm/dL (12.0-15.0)
[2020-07-05 05:05] VITALS: BP 109/45
[2020-07-05 08:00] VITALS: BP 131/47
[2020-07-05 12:00] VITALS: BP 143/61
[2020-07-05 16:00] VITALS: BP 131/62
--- NOTE | 2020-07-05 18:50 | NUR ---
RECEIVED REPORT. ASSUMED CARE OF PT AROUND 0730. AM ASSESSMENT AND VITALS COMPLETED CHARTED. MEDS PER EMAR. PT IMPROVING; PLAN IS TO DC TOMORROW. VISITORS THIS AM. FALL PRECAUTIONS IN PLACE. CALL LIGHT IS WITHIN REACH. HOURLY ROUNDING PERFORMED.
[2020-07-05 23:42] VITALS: BP 126/59
--- NOTE | 2020-07-06 02:49 | NUR ---
ALERT ORIENTED. UP AD STACIE IN ROOM. TELEMETRY SHOWS SR. ON RA. PROBABLE DC TO HOME TODAY.
[2020-07-06 04:21] VITALS: BP 153/71
[2020-07-06 04:47] LABS: HEMATOCRIT 31.2 % (37.0-47.0); HEMOGLOBIN 10.4 gm/dL (12.0-15.0); MCH 31.1 pg (26.0-34.0); MCHC 33.1 g/dL (28.0-37.0); MCV 93.9 fL (80.0-100.0); MPV 8.8 fl. (7.2-11.1); RBC 3.32 mil/uL (4.20-5.00); RDW-CV 14.3 % (10.5-14.5); WBC 7.8 thou/uL (4.0-11.0)
[2020-07-06 05:10] LABS: ALBUMIN 2.7 g/dL (3.4-5.0); CALCIUM 8.2 mg/dL (8.5-10.1); CREATININE 0.9 mg/dL (0.6-1.3); MAGNESIUM 2.4 mg/dL (1.8-2.4); POTASSIUM 3.7 mmol/L (3.5-5.1); TOTAL BILIRUBIN 0.5 mg/dL (<0.1-1.0); TOTAL PROTEIN 6.2 g/dL (6.4-8.2)
[2020-07-06] MEDS ORDERED: CEPHALEXIN500 MG PO (09:23)
[2020-07-06 12:34] VITALS: BP 153/71
--- NOTE | 2020-07-06 13:34 | NUR ---
RECEIVED REPORT. ASSUMED CARE OF PT AROUND 0730. AM ASSESSMENT AND VITALS COMPLETED CHARTED. MEDS PER EMAR. CITY SECRETARY IN PLACE. DISCHARGE ORDERS RECEIVED. DISCHARGE COMPLETED DOCUMENTED. PT AWARE TO PRELOAD SUPERVISOR MEDS FROM PHARMACY. IV AND CITY SECRETARY REMOVED. ALL BELONGINGS GATHERED AND SENT HOME WITH PT. PT LEFT UNIT WALKING WITH NURSING STAFF. PT LEFT HOSPIAL IN CAR DRIVING SELF.
== END 2020-07-06 13:15 | disposition home or self-care (01) | DRG 872 ==
LOC: M.ERS 10:25 → M.TBA-ER 13:48 → M.2W 16:35
PROVIDERS: Emergency Medicine; ADMIT Internal Medicine; ATTEND Internal Medicine
DX: A41.9 Sepsis, unspecified organism (principal); N10 Acute pyelonephritis; I10 Essential (primary) hypertension; E78.00 Pure hypercholesterolemia, unspecified; G89.29 Other chronic pain; M54.9 Dorsalgia, unspecified; F41.9 Anxiety disorder, unspecified; F32.9 Major depressive disorder, single episode, unspecified; E78.5 Hyperlipidemia, unspecified; M19.90 Unspecified osteoarthritis, unspecified site; I95.9 Hypotension, unspecified; Z20.822 Contact with and (suspected) exposure to COVID-19; Z79.899 Other long term (current) drug therapy

== ENCOUNTER → 2020-07-24 | Outpatient (CLI) | payer BC ==
[~2020-07-24] MED LIST changes: +CEPHALEXIN500 MG PO
== END ==
LOC: M.PC 08:29
PROVIDERS: ATTEND Anesthesiology Pain Medicine
DX: M54.16 Radiculopathy, lumbar region (principal); N12 Tubulo-interstitial nephritis, not specified as acute or chronic; N39.0 Urinary tract infection, site not specified; F32.9 Major depressive disorder, single episode, unspecified; I10 Essential (primary) hypertension; E78.5 Hyperlipidemia, unspecified; M54.5 Low back pain; Z79.899 Other long term (current) drug therapy

== ENCOUNTER → 2020-08-19 | Outpatient (CLI) | payer BC | END | disposition home or self-care (01) | LOC: M.PC 09:43 | PROVIDERS: ATTEND Anesthesiology Pain Medicine | DX: M54.16 Radiculopathy, lumbar region (principal); G89.29 Other chronic pain; I10 Essential (primary) hypertension; E78.5 Hyperlipidemia, unspecified; M19.90 Unspecified osteoarthritis, unspecified site; F32.9 Major depressive disorder, single episode, unspecified; Z98.890 Other specified postprocedural states; Z79.899 Other long term (current) drug therapy; Z87.891 Personal history of nicotine dependence ==

== ENCOUNTER → 2020-09-18 | Outpatient (CLI) | payer BC | LOC: M.PC 07:46 | PROVIDERS: ATTEND Anesthesiology Pain Medicine | DX: G89.29 Other chronic pain (principal); I10 Essential (primary) hypertension; E78.5 Hyperlipidemia, unspecified; E78.00 Pure hypercholesterolemia, unspecified; F32.9 Major depressive disorder, single episode, unspecified; Z98.890 Other specified postprocedural states; Z68.41 Body mass index [BMI] 40.0-44.9, adult; Z79.891 Long term (current) use of opiate analgesic; Z79.899 Other long term (current) drug therapy ==

== ENCOUNTER → 2020-10-16 | Outpatient (CLI) | payer BC | END | disposition home or self-care (01) | LOC: M.PC 07:42 | PROVIDERS: ATTEND Anesthesiology Pain Medicine | DX: M54.16 Radiculopathy, lumbar region (principal); G89.29 Other chronic pain; I10 Essential (primary) hypertension; E78.5 Hyperlipidemia, unspecified; F32.9 Major depressive disorder, single episode, unspecified; F41.9 Anxiety disorder, unspecified; Z98.890 Other specified postprocedural states; Z79.899 Other long term (current) drug therapy; Z79.891 Long term (current) use of opiate analgesic ==

== ENCOUNTER → 2020-12-11 | Outpatient (CLI) | payer BC | END | disposition home or self-care (01) | LOC: M.PC 08:07 | PROVIDERS: ATTEND Anesthesiology Pain Medicine | DX: M54.16 Radiculopathy, lumbar region (principal); M54.5 Low back pain; G89.29 Other chronic pain; Z98.890 Other specified postprocedural states; Z79.899 Other long term (current) drug therapy ==

== ENCOUNTER → 2021-01-13 | Outpatient (CLI) | payer BC | LOC: M.PC 07:43 | PROVIDERS: ATTEND Anesthesiology Pain Medicine | DX: M54.16 Radiculopathy, lumbar region (principal); M79.604 Pain in right leg; I10 Essential (primary) hypertension; E78.5 Hyperlipidemia, unspecified; F34.89 Other specified persistent mood disorders; Z79.899 Other long term (current) drug therapy ==

== ENCOUNTER → 2021-03-10 | Outpatient (CLI) | payer BC | END | disposition home or self-care (01) | LOC: M.PC 08:17 | PROVIDERS: ATTEND Anesthesiology Pain Medicine | DX: M54.16 Radiculopathy, lumbar region (principal); G89.29 Other chronic pain; E11.40 Type 2 diabetes mellitus with diabetic neuropathy, unspecified; I13.0 Hypertensive heart and chronic kidney disease with heart failure and stage 1 through stage 4 chronic kidney disease, or unspecified chronic kidney disease; E11.22 Type 2 diabetes mellitus with diabetic chronic kidney disease; N18.30 Chronic kidney disease, stage 3 unspecified; I50.9 Heart failure, unspecified; E78.00 Pure hypercholesterolemia, unspecified; F32.9 Major depressive disorder, single episode, unspecified; F41.9 Anxiety disorder, unspecified; Z98.890 Other specified postprocedural states; Z79.899 Other long term (current) drug therapy; Z95.0 Presence of cardiac pacemaker ==

== ENCOUNTER → 2021-05-05 | Outpatient (CLI) | payer BC ==
[~2021-05-05] MED LIST changes: +HYDROCODONE-AP1 EA11 PO; +LISINOPRIL10 MG PO
== END ==
LOC: M.PC 08:07
PROVIDERS: ATTEND Anesthesiology Pain Medicine
DX: I13.0 Hypertensive heart and chronic kidney disease with heart failure and stage 1 through stage 4 chronic kidney disease, or unspecified chronic kidney disease (principal); E11.40 Type 2 diabetes mellitus with diabetic neuropathy, unspecified; N18.30 Chronic kidney disease, stage 3 unspecified; I50.9 Heart failure, unspecified; E78.00 Pure hypercholesterolemia, unspecified; E07.9 Disorder of thyroid, unspecified; M51.16 Intervertebral disc disorders with radiculopathy, lumbar region; N32.81 Overactive bladder; G70.00 Myasthenia gravis without (acute) exacerbation; G47.00 Insomnia, unspecified; L57.0 Actinic keratosis; R80.9 Proteinuria, unspecified; E55.9 Vitamin D deficiency, unspecified; E23.0 Hypopituitarism; Z95.0 Presence of cardiac pacemaker; Z79.899 Other long term (current) drug therapy